=== PATIENT | female | born 1995 | race Caucasian/White ===

== ENCOUNTER 2018-10-06 12:19 | Inpatient (IN) | payer OTHER, BC ==
[2018-10-06] MEDS ORDERED: TERBUTALINE 1 MG/ML VIAL SQ PRN (13:03)
[2018-10-06] MEDS ORDERED: METHYLERGONOVINE 0.2 MG/ML 1 ML AMP IM PRN (13:03)
[2018-10-06] MEDS ORDERED: CARBOPROST TROMETHAMINE 250 MCG/ML 1 ML AMP IM PRN (13:03)
[2018-10-06] MEDS ORDERED: OXYTOCIN 10 UNIT/ML 1 ML VIAL IM PRN (13:03)
[2018-10-06] MEDS ORDERED: LIDOCAINE 0.5% (PF) 5 MG/ML (50 ML SDV) SQ PRN (13:03)
[2018-10-06] MEDS ORDERED: PENICILLIN G POTASSIUM 5,000,000 UNIT in DEXTROSE 5% IN WATER 100 ML IVPB STA ×2 (13:03)
[2018-10-06] MEDS ORDERED: BUTORPHANOL 1 MG/ML 1 ML VIAL IV PRN (13:06)
--- NOTE | 2018-10-06 13:12 | P.HPOB ---
History of Present Illness H&P Date: 10/06/18 Chief Complaint: 35-2/7 weeks, active labor The patient is a 23-year-old 1 para 0 admitted at 35-2/7 weeks as established by good dating parameters. She is admitted from the office having been in the office for routine visit today at which time her cervical check demonstrated her cervix to be 4+ centimeters dilated, 80% effaced, the vertex in presentation at -2-3 station. She was sent to labor and delivery for further monitoring and cervical recheck. Recheck on labor and delivery demonstrated her cervix to be 6+ centimeters dilated 90% effaced with the vertex in presentation at -1 station with bulging bag of water. As result, she is admitted for active labor. Given her advanced dilation, no attempts will be made to stop the labor at this time. She will be managed expectantly. Her has otherwise been uncomplicated to this point and her only problem for the has been morbid obesity. Group B strep status is not yet known as it was only cultured today. Obstetrical history: 1 para 0 with current statistics listed in history present illness. EDC and laboratory workup are as outlined in the record which is being sent from the office currently. Gynecologic history: Unremarkable with no history of any infections to include STDs. Review of Systems Review of systems is confined to history of present illness. Medications and Allergies Home Medications Medication Instructions Recorded Confirmed Type Benzoyl Peroxide [Benzac AC Wash] 1 applic TOPICAL BID 10/06/18 10/06/18 History Omeprazole 40 mg PO DAILY MDD 40 mg 10/06/18 10/06/18 History Pnv,Calcium 72/Iron/Folic Acid 1 tab PO DAILY MDD 1 10/06/18 10/06/18 History [ Plus Tablet] diphenhydrAMINE [Benadryl] 25 mg PO BID PRN 10/06/18 10/06/18 History Allergies Allergy/AdvReac Type Severity Reaction Status Date / Time No Known Allergies Allergy Verified 10/06/18 12:55 Exam Intake and Output 10/05/18 10/06/18 10/06/18 22:59 06:59 14:59 Other: Weight 138.346 kg In general, this is a well-developed, morbidly obese white female in no acute distress. Her heart has a regular rhythm and rate without murmur. Her lungs are clear to auscultation bilaterally in all hou. Her abdomen is obese, nondistended, has normal active bowel sounds, soft, nontender, and without any palpable masses aside from uterine fundus. Her extremities are without any cyanosis, clubbing, or edema and are nontender to palpation bilaterally. Digital cervical examination performed by the nursing staff most recently demonstrates cervix to be 6+ centimeters dilated, 90% effaced, the vertex in presentation at -1 station with a bulging bag of water. Assessment and Plan (1) Active labor Current Visit: Yes Status: Acute Code(s): O60.10X0 - LABOR W DELIVERY, UNSP TRIMESTER, UNSP SNOMED Code(s): 2264134 Plan: The patient will be admitted and managed expectantly at this time. Antibiotic prophylaxis for group B strep will be started. No movement will be made to actively deliver the patient at this time or until adequate antibody prophylaxis has been established. She will continue to have close maternal and surveillance and expectant management will be practiced. She is a good candidate for either IV or epidural analgesia, whichever she may choose. We did have a discussion regarding the issues of prematurity and the likelihood that the infant will need to remain in the hospital for some time following delivery secondary to issues of prematurity.
[2018-10-06] MEDS: LACTATED RINGERS 1,000 ML IV SCH ×3 (13:30→22:38)
[2018-10-06] MEDS ORDERED: BETAMET ACET-BETAMETH SOD PHOS 6 MG/ML VIAL IM SCH (13:30)
[2018-10-06 13:44] LABS: Basophils % (A) 0 %; Eosinophils # (A) 0.1 k/uL (0-0.7); Eosinophils % (A) 1 %; HCT 40.1 % (34.0-46.0); HGB 12.9 gm/dL (11.4-16.0); Lymphocytes # (A) 1.9 k/uL (1.0-4.8); Lymphocytes % (A) 17 %; MCH 27.3 pg (25.0-35.0); MCHC 32.2 g/dL (31.0-37.0); MCV 84.9 fL (80.0-100.0); Mean Platelet Volume 9.2; Monocytes # (A) 0.5 k/uL (0-1.0); Monocytes % (A) 5 %; Neutrophils % (A) 75 %; Platelet Count 167 k/uL (150-450); RBC 4.72 m/uL (3.80-5.40); RDW 13.5 % (11.5-15.5); WBC 10.7 k/uL (3.8-10.6)
[2018-10-06 14:00] VITALS: BMI 54.0
[2018-10-06] MEDS: PENICILLIN G POTASSIUM 2,500,000 UNIT in DEXTROSE 5% IN WATER 100 ML IVPB SCH ×2 (19:05)
[2018-10-06] MEDS ORDERED: ceFAZolin 3 GM in SODIUM CHLORIDE 0.9% 100 ML IVPB ONE (20:47)
[2018-10-06] MEDS ORDERED: CITRIC ACID-SODIUM CITRATE 15 ML CUP PO ONE (20:47)
[2018-10-06] MEDS ORDERED: fentaNYL (PF) 50 MCG/ML 2 ML AMP ONE (20:53)
[2018-10-06] MEDS ORDERED: HYDROmorphone (PF) 1 MG/ML ONE (20:53)
[2018-10-06] MEDS ORDERED: SUCCINYLCHOLINE CHLORIDE 100 MG/5 ML SYR IV ONE (20:53)
[2018-10-06] MEDS ORDERED: OXYTOCIN 10 UNIT/ML 1 ML VIAL ONE (20:53)
[2018-10-06] MEDS ORDERED: PROPOFOL 10 MG/ML 20 ML VIAL IV ONE (20:53)
[2018-10-06] MEDS ORDERED: KETOROLAC 30 MG/ML 1 ML VIAL ONE (20:53)
[2018-10-06] MEDS ORDERED: ONDANSETRON 4 MG/2 ML VIAL ONE (20:53)
[2018-10-06] MEDS ORDERED: METOCLOPRAMIDE 5 MG/ML 2 ML VIAL IVP PRN (21:44)
[2018-10-06] MEDS ORDERED: diphenhydrAMINE 50 MG/ML 1 ML VIAL IVP PRN ×2 (21:44)
[2018-10-06] MEDS ORDERED: ACETAMINOPHEN TAB 325 MG TAB PO PRN (21:44)
[2018-10-06] MEDS ORDERED: SIMETHICONE 80 MG CHEWABLE PO PRN (21:44)
[2018-10-06] MEDS ORDERED: HYDROcodone/APAP 7.5-325MG 1 EACH TAB PO PRN (21:44)
[2018-10-06] MEDS ORDERED: HYDROcodone/APAP 5-325MG 1 EACH TAB PO PRN (21:44)
[2018-10-06] MEDS ORDERED: NALOXONE 0.4 MG/ML 1 ML VIAL IV PRN (21:44)
[2018-10-06] MEDS ORDERED: ACETAMINOPHEN IV (For NPO) 1,000 MG in EMPTY BAG 1 BAG IVPB ONE (21:44)
[2018-10-06] MEDS ORDERED: diphenhydrAMINE 25 MG CAP PO PRN (21:44)
[2018-10-06] MEDS ORDERED: ZOLPIDEM 5 MG TAB PO PRN (21:44)
[2018-10-06] MEDS ORDERED: IBUPROFEN 600 MG TAB PO PRN (21:44)
[2018-10-06] MEDS ORDERED: ONDANSETRON 4 MG/2 ML VIAL IVP PRN (21:44)
[2018-10-06] MEDS ORDERED: LANOLIN CREAM 5 GM TUBE TOPICAL PRN (21:44)
[2018-10-06] MEDS ORDERED: diphenhydrAMINE 50 MG CAP PO PRN (21:44)
[2018-10-06] MEDS ORDERED: OXYTOCIN 20 UNITS/1000 ML NS 1,000 ML IV SCH (21:45)
[2018-10-06] MEDS ORDERED: HYDROmorphone PCA 10 MG/50 ML BAG IV PRN (21:50)
--- NOTE | 2018-10-06 21:59 | P.OP ---
Date of Procedure: 10/06/18 Preoperative Diagnosis: #1. 35-2/7 weeks, active labor #2. Acute umbilical cord prolapse Postoperative Diagnosis: Same Procedure(s) Performed: #1. Emergency primary low-transverse section Anesthesia: LIDIA Surgeon: Tyson Tran Founder Ceo & President #1: Mukund Dumont Estimated Blood Loss (ml): 700 IV fluids (ml): 1,000 Urine output (ml): 200 Pathology: other (Placenta) Condition: stable Disposition: floor Operative Findings: Preoperatively, the patient presented from the office where she had been found to be 47 m dilated and was found in triage to be 6 cm dilated with active contractions. She was given betamethasone and antibiotic prophylaxis started. The intention was to keep her as long as possible. She, however, began to have significantly increased discomfort and progressed to approximately 8 cm of dilation at which time artificial rupture of membranes was carried out. There was a copious amount of amniotic fluid released with rupture of membranes and a scalp lead had been placed. The lesion appeared to be malfunctioning and was rechecked at which time a loop of umbilical cord was noted to have prolapsed below the level of the head. Preparations were made for emergency section. She was taken to the operating room where she underwent emergency section as above and was delivered of a viable 5 lbs. 11 oz. baby boy with Apgars of 7 at 1 minute and 9 at 5 minutes. cord gases are pending at this time. The placenta was delivered manually and intact and was sent for pathological diagnoses with a grossly normal three-vessel cord. The uterus, tubes, and ovaries were entirely normal to inspection. Clear urine was noted throughout and after the case. Description of Procedure: The patient was prepped and draped in usual fashion and general endotracheal anesthesia was placed by the anesthesiologist. A Pfannenstiel incision was made and extended into the abdominal cavity very rapidly and without difficulty. The bladder was noted to be distal from intended site of uterine incision. A 2 cm incision was made in the transverse plane of the lower uterine segment to enter the uterus at which time further clear fluid was noted. The incision was extended bluntly. The head was delivered up and through the wound remainder of the infant delivered onto the field where the cord was doubly clamped and cut while resuscitative measures were being initiated. A segment of cord was doubly clamped, cut, and set aside for cord gases to be taken. The placenta was delivered manually and intact as noted above. Following delivery of the , and Yahir self-retaining wound retractor was placed and the margins of the incision grasped with Bhatti clamps. The uterus was left intra-abdominally as the angle was far superior for closure. The wound was closed with 2 running stitches of 0 Vicryl, the first being a running locking stitch followed by a running imbricating stitch. Hemostasis appeared to be excellent. The uterus was then exteriorized and the posterior cul-de-sac suctioned with a guard. Uterus was replaced in the abdominal cavity after insuring normal uterine and ovarian findings. The gutters were swept of any remaining blood, fluid, or clot. The wound was reexamined and found to be hemostatic. The Azul retractor was removed and the layer of muscles examined and made hemostatic with the Bovie. After ensuring adequate hemostasis, the fascia was closed with 2 running stitches of 0 Vicryl proceeding from the lateral margins to the midpoint. The subcutaneous tissues were irrigated and made hemostatic with the Bovie. They were then reapproximated with a running stitch of 30 plain catgut. Skin was closed with a running subcuticular stitch of 4-0 Vicryl followed by half-inch Steri-Strips placed with Mastisol. Maternal wall thickness was approximately 10 cm. All sponge, instrument, and needle counts were correct. There were no complications aside from the emergent nature of the procedure. The patient tolerated the procedure well and proceeded to the recovery room in stable condition. Estimated blood loss was approximately 700 mL.
[2018-10-07] MEDS: PENICILLIN G POTASSIUM 2,500,000 UNIT in DEXTROSE 5% IN WATER 100 ML IVPB SCH ×2 (02:43)
[2018-10-07] MEDS: KETOROLAC 30 MG/ML 1 ML VIAL IVP PRN ×3 (05:37→17:25)
[2018-10-07] MEDS: LACTATED RINGERS 1,000 ML IV SCH ×2 (05:45→20:53)
[2018-10-07 07:04] LABS: Basophils % (A) 0 %; Eosinophils % (A) 0 %; HCT 38.5 % (34.0-46.0); HGB 12.4 gm/dL (11.4-16.0); Lymphocytes # (A) 1.1 k/uL (1.0-4.8); Lymphocytes % (A) 6 %; MCH 27.4 pg (25.0-35.0); MCHC 32.1 g/dL (31.0-37.0); MCV 85.5 fL (80.0-100.0); Mean Platelet Volume 9.7; Monocytes # (A) 0.7 k/uL (0-1.0); Monocytes % (A) 4 %; Neutrophils # (A) 15.5 k/uL (1.3-7.7); Neutrophils % (A) 89 %; Platelet Count 182 k/uL (150-450); RBC 4.51 m/uL (3.80-5.40); RDW 13.5 % (11.5-15.5); WBC 17.5 k/uL (3.8-10.6)
--- NOTE | 2018-10-07 08:30 | P.PNOBGPC ---
Subjective - Subjective Patient reports: Reports appetite normal, Reports voiding normally, Reports pain well controlled, Reports ambulating normally : doing well, in NICU (Doing very well, weaning from high flow oxygen) Objective - Vital Signs Latest vital signs: Vital Signs Temp Pulse Resp BP Pulse Ox 10/07/18 03:49 97.6 F 87 16 121/67 99 10/07/18 00:00 97.0 F L 65 18 118/60 100 10/06/18 23:39 98.4 F 68 18 118/59 98 10/06/18 23:09 67 18 123/61 100 10/06/18 22:39 60 18 119/60 98 10/06/18 22:24 97.9 F 65 18 123/66 98 10/06/18 22:09 69 18 122/58 100 10/06/18 21:54 89 20 132/69 100 10/06/18 21:50 100 10/06/18 21:39 97.1 F L 93 20 131/68 100 10/06/18 12:52 97.2 F L 85 18 137/65 97 Intake and Output 10/06/18 10/07/18 10/07/18 22:59 06:59 14:59 Intake Total 1000 1100 Output Total 900 1700 Balance 100 -600 Intake: IV 1000 Intake, IV Titration 1100 Amount ACETAMINOPHEN IV (For NPO 100 ) 1,000 mg In Empty Bag 1 bag @ 400 mls/hr IVPB ONCE ONE Rx#:[id number] Lactated Ringers 1,000 ml 1000 @ 125 mls/hr IV .Q8H [facility] Rx#:[id number] Output: Urine 200 1700 Uretheral (Thapa) 1000 Estimated Blood Loss 700 Other: Voiding Method Indwelling Catheter Indwelling Catheter # Voids 2 0 - Exam Extremities: Present: normal Abdomen: Present: normal appearance, soft. Absent: distention, tenderness Incision: Present: normal, dry, intact Uterus: Present: normal, firm (The uterine fundus is tonic and appropriately tender around the umbilicus. Exam is limited by patient habitus.) - Labs Labs: Abnormal Lab Results - Last 24 Hours (Table) 10/06/18 10/07/18 Range/Units 13:25 06:52 WBC 10.7 H 17.5 H (3.8-10.6) k/uL Neutrophils # 8.0 H 15.5 H (1.3-7.7) k/uL Assessment and Plan (1) Active labor Current Visit: Yes Status: Acute Code(s): O60.10X0 - LABOR W DELIVERY, UNSP TRIMESTER, UNSP SNOMED Code(s): 7345031 (2) S/P emergency section Current Visit: Yes Status: Acute Code(s): Z98.891 - HISTORY OF UTERINE SCAR FROM PREVIOUS SURGERY SNOMED Code(s): 304568079 Plan: Continue routine postoperative care. I will advance her diet to regular with lunch. I strongly encouraged her to ambulate in the hallways routinely, but at least 4 times daily. Her [employer] will be discontinued around lunchtime in favor of oral pain medications and her IV will be hep-locked.
[2018-10-07] MEDS: SENNOSIDES-DOCUSATE SODIUM 1 EACH TAB PO SCH (20:53)
[2018-10-08] MEDS: SENNOSIDES-DOCUSATE SODIUM 1 EACH TAB PO SCH (08:14)
--- NOTE | 2018-10-08 10:42 | P.DS ---
Providers Date of admission: 10/06/18 12:51 Expected date of discharge: 10/08/18 Attending physician: Tyson Tran Primary care physician: Stated None - Discharge Diagnosis(es) (1) Active labor Current Visit: Yes Status: Acute (2) S/P emergency section Current Visit: Yes Status: Acute Hospital Course: The patient is a 23-year-old 1 para 0 admitted at 35-2/7 weeks by good dating parameters. She is admitted after having been found in the office to be 4 cm dilated and 70% effaced. She was sent to the hospital for observation and evaluation. When she arrived, she was found to be 6 cm dilated and actively in labor. She was given a dose of betamethasone and antibiotics started for group B strep prophylaxis. The intention was to allow her to remain as long as possible. After several hours, however, she became significantly more uncomfortable and the decision was made to proceed with delivery. She underwent artificial rupture of membranes and a scalp lead was placed. The scalp lead appeared to be malfunctioning was rechecked at which time it was noted that she had a loop of umbilical cord prolapsing through the cervix had of the head. She was taken then to the operating room for an emergency primary low-transverse section where she was delivered of a viable 5 lbs. 11 oz. baby boy with Apgars of 7 at 1 minute and 9 at 5 minutes. The patient's postoperative course was unremarkable with vital signs remaining stable and her temperature was afebrile throughout. She was deemed stable for discharge on and postoperative day #2. She was discharged home to follow-up in the office in 2 weeks for an incision check and 6 weeks routinely. Discharge instructions included calling for any significantly increased bleeding or foul-smelling lochia, significantly increased fever abdominal pain, perineal complaints, breast complaints, incisional complaints, or anything else that concerned her. She is additionally instructed to have nothing in the vagina for at least 6 weeks time to include intercourse and to abstain from any heavy lifting over the same period of time. His last instructed to do no driving until off of all pain medications or 2 weeks' time, whichever came first. She understood all of her instructions and agrees to follow up as noted above. The does remain in special care nursery for ongoing treatment of issues of prematurity but is doing quite well. Maternal blood type is O+ and rubella status is immune. Discharge hemoglobin and hematocrit were 12.4 and 38.5 respectively. Procedures: #1. Antibiotic prophylaxis #2. Betamethasone administration #3. Emergency primary low-transverse section Patient Condition at Discharge: Stable Plan - Discharge Summary New Discharge Prescriptions: No Action Pnv,Calcium 72/Iron/Folic Acid [ Plus Tablet] 1 tab PO DAILY MDD 1 diphenhydrAMINE [Benadryl] 25 mg PO BID PRN PRN Reason: Itching Omeprazole 40 mg PO DAILY MDD 40 mg Discharge Medication List Omeprazole 40 mg PO DAILY MDD 40 mg 10/06/18 [History] Pnv,Calcium 72/Iron/Folic Acid [ Plus Tablet] 1 tab PO DAILY MDD 1 10/06/18 [History] diphenhydrAMINE [Benadryl] 25 mg PO BID PRN 10/06/18 [History] Follow up Appointment(s)/Referral(s): Tyson Tran MD [STAFF PHYSICIAN] - 2 Weeks Discharge Disposition: HOME SELF-CARE
[2018-10-08 13:32] VITALS: BP 118/79; PULSE 82; RESP 16; TEMP 98.2
--- NOTE | 2018-10-09 11:21 | P.MSEPDOC ---
Presenting Problems - Arrival Data Date of Arrival on Unit: 10/06/18 Time of Arrival on Unit: 12:50 Mode of Transport: Bed - Complaint OB-Reason for Admission/Chief Complaint: Possible Onset of Labor Comment: 4-5 cm at office. sent for observation Medical History - Information : 3 Para: 0 Term: 0 : 0 Abortions: Spontaneous or Elective: 0 Number of Living Children: 0 - Gestational Age Gestational Age by MAXI (wks/days): 35 Weeks and 3 Days Review of Systems - Review of Systems Constitutional: No problems Breast: No problems ENT: No problems Cardiovascular: No problems Respiratory: No problems Gastrointestinal: No problems Genitourinary: No problems Musculoskeletal: No problems Neurological: No problems Skin: No problems Vital Signs - Temperature Temperature: 98.2 F Temperature Source: Oral - Pulse Right Brachial Pulse Rate: 82 Pulse Assessment Method: Automatic Cuff - Respirations Respiratory Rate: 16 Oxygen Delivery Method: Room Air - Blood Pressure Right Arm Blood Pressure: 118/79 Blood Pressure Mean: 92 Blood Pressure Source: Automatic Cuff - Comment Vital Signs Comment: denies additional needs at this time. No s/s of distress noted at this time. SO at bedside. Pt resting in bed, sleeping. Encouraged to use DIRECTOR OF [employer]NERSHIPS with pain. Call light within reach. Will continue to monitor. Medical Screen Scoring (Pre) - Cervical Exam Dilation: 4-7 cm = 2 Effacement: Exam Deferred Membranes: Intact - Uterine Contractions Frequency: N/A Duration: N/A Intensity: N/A - Maternal Vital Signs Maternal Temperature: N/A Maternal Blood Pressure: N/A Signs of Preeclampsia: N/A Maternal Respirations: N/A - Maternal Trauma Maternal Trauma: N/A - Assessment - Baby A Baseline FHR: 130 Heart Rate - NICHD Category: Category I (Normal) = 0 NST: Reactive Position: N/A Station: N/A - Total Score - Baby A Total Score - Baby A: 2 - Total Score - Baby B Total Score - Baby B: 2 - Total Score - Baby C Total Score - Baby C: 2 - Level of Risk - Baby A Level of Risk - Baby A: Low (0-5) - Level of Risk - Baby B Level of Risk - Baby B: Low (0-5) - Level of Risk - Baby C Level of Risk - Baby C: Low (0-5) Physician Notification (Pre) - Physician Notified Physician Notified Date: 10/06/18 Physician Notified Time: 12:50 Physician/Practitioner Notifed:: yes Spoke With: panchito New Order Received: Yes - Notification Comment Comment: Orders received Dr. Tran for penicillin and celestone. See orders. Disposition - Disposition OB Disposition: Admit Transferred to:: st 5 Discharge Date: 10/08/18 Discharge Time: 15:25 I agree with the RN Medical Screening Exam: Yes Risk & Benefit of care provided described in d/c instruction: Yes Diagnosis: LABOR THIRD TRI W DELIVERY THIRD TRI, UNSP
== END 2018-10-08 15:25 | disposition home or self-care (01) | DRG 788 ==
LOC: FBPOP 12:19 → 4FBP 12:51
PROVIDERS: ADMIT Obstetrics & Gynecology; ATTEND Obstetrics & Gynecology
PROC: 10907ZC Drainage of Amniotic Fluid, Therapeutic from Products of Conception, Via Natural or Artificial Opening (ICD-10-PCS; 2018-10-06)
PROC: 4A1H7CZ Monitoring of Products of Conception, Cardiac Rate, Via Natural or Artificial Opening (ICD-10-PCS; 2018-10-06)
PROC: 10H073Z Insertion of Monitoring Electrode into Products of Conception, Via Natural or Artificial Opening (ICD-10-PCS; 2018-10-06)
PROC: 10D00Z1 Extraction of Products of Conception, Low, Open Approach (ICD-10-PCS; principal; 2018-10-06 20:50)
DX: O60.14X0 Preterm labor third trimester with preterm delivery third trimester, not applicable or unspecified (principal); O69.0XX0 Labor and delivery complicated by prolapse of cord, not applicable or unspecified; O99.214 Obesity complicating childbirth; E66.01 Morbid (severe) obesity due to excess calories; Z3A.35 35 weeks gestation of pregnancy; Z37.0 Single live birth
CPT/HCPCS: 85025; 86850; 86900; 86901

== ENCOUNTER 2020-09-05 14:09 | Emergency (ER) | payer BC, OTHER ==
[2020-09-05 14:25] VITALS: BP 131/87; PULSE 77; RESP 16; TEMP 98.2
[2020-09-05] MEDS ORDERED: KETOROLAC 15 MG/ML 1 ML VIAL IVP STA (14:55)
[2020-09-05] MEDS ORDERED: SODIUM CHLORIDE 0.9% 1,000 ML IV STA (14:55)
--- NOTE | 2020-09-05 15:03 | ED ---
Abdominal Pain HPI - General Chief Complaint: Abdominal Pain Stated Complaint: Vomiting blood,ABD pain Source: patient, RN notes reviewed, old records reviewed Mode of arrival: ambulatory Limitations: no limitations - History of Present Illness Initial Comments: 24-year-old obese white female, alert and oriented 4, presents to the emergency room with complaints of epigastric and right upper quadrant abdominal pain. Patient states on morning at 4 AM she had an episode of vomiting which was mostly food. Patient states that the pain gets worse after she eats. She has not had this before. Patient states pain is 6 out of 10 and sharp with palpation. She also had another episode of vomiting today with specks of blood in it. Patient states that she also has some diarrhea after she eats but denies any fevers. She denies any medical history but does take omeprazole since being with her son in 2018. Patient surgical history consists of only a in September 2018. Patient states her last menstrual period was August 13. She is a nonsmoker. MD Complaint: abdominal pain -: days(s) (6) Location: RUQ, epigastric Radiation: none Severity scale (1-10): 6 Quality: sharp Consistency: intermittent Worsens With: eating Associated Symptoms: diarrhea - Related Data Patient : No (Negative test at [facility] today; IUD since 2018) Home Medications Medication Instructions Recorded Confirmed Omeprazole 40 mg PO DAILY MDD 40 mg 10/06/18 10/06/18 Pnv,Calcium 72/Iron/Folic Acid 1 tab PO DAILY MDD 1 10/06/18 10/06/18 [ Plus Tablet] diphenhydrAMINE [Benadryl] 25 mg PO BID PRN 10/06/18 10/06/18 Allergies Allergy/AdvReac Type Severity Reaction Status Date / Time benzoyl peroxide Allergy Rash/Hives Verified 09/05/20 14:24 Review of Systems ROS Statement: Those systems with pertinent positive or pertinent negative responses have been documented in the HPI. ROS Other: All systems not noted in ROS Statement are negative. Past Medical History Past Medical History: No Reported History History of Any Multi-Drug Resistant Organisms: None Reported Past Surgical History: Section, Ear Surgery Additional Past Surgical History / Comment(s): myringotomy, wisdom teeth Past Anesthesia/Blood Transfusion Reactions: No Reported Reaction Past Psychological History: No Psychological Hx Reported Smoking Status: Never smoker Past Alcohol Use History: None Reported Past Drug Use History: None Reported - Past Family History Father Additional Family Medical History / Comment(s): crohns, diverticuli Mother Family Medical History: Hypertension General Exam Limitations: no limitations General appearance: alert, in no apparent distress Head exam: Present: atraumatic, normocephalic, normal inspection Eye exam: Present: normal appearance, PERRL, EOMI. Absent: scleral icterus, conjunctival injection, periorbital swelling Pupils: Present: normal accommodation ENT exam: Present: normal exam, mucous membranes moist Neck exam: Present: normal inspection. Absent: tenderness, meningismus, full ROM, lymphadenopathy Respiratory exam: Present: normal lung sounds bilaterally. Absent: respiratory distress, wheezes, rales, rhonchi, stridor, chest wall tenderness, accessory muscle use, decreased breath sounds Cardiovascular Exam: Present: regular rate, normal rhythm, normal heart sounds. Absent: systolic murmur, diastolic murmur, rubs, gallop, clicks GI/Abdominal exam: Present: soft, normal bowel sounds. Absent: distended, tenderness, guarding, rebound, rigid, mass Extremities exam: Present: normal inspection, full ROM, normal capillary refill. Absent: tenderness, pedal edema, joint swelling, calf tenderness Back exam: Present: normal inspection, full ROM. Absent: tenderness, CVA tenderness (R), CVA tenderness (L), muscle spasm, paraspinal tenderness, vertebral tenderness Neurological exam: Present: alert, oriented X3, CN II-XII intact Psychiatric exam: Present: normal affect, normal mood Skin exam: Present: warm, dry, intact, normal color. Absent: rash, cyanosis, diaphoretic, erythema, petechiae, pallor, mottled Course Vital Signs 09/05/20 14:22 Temperature 98.2 F Pulse Rate 77 Respiratory 16 Rate Blood Pressure 131/87 O2 Sat by Pulse 100 Oximetry Medical Decision Making - Medical Decision Making WBC count is 7.1, hemoglobin and hematocrit is 14 and 43 respectively, UCG is negative. Amylase 49, lipase 79. Weight does not show any signs of infection. CT shows a 1.8 cm complex right ovarian cyst. Liver, spleen, pancreas, gallbladder and appendix are within normal limits. Patient is due to start her period within the next 2 weeks this is likely ovarian cyst pain will be directed to follow up with her primary care doctor. Case discussed with Dr. Nava. - Lab Data Result diagrams: 09/05/20 15:23 09/05/20 15:23 Lab Results 09/05/20 09/05/20 09/05/20 Range/Units 15:23 15:23 15:23 WBC 7.1 (3.8-10.6) k/uL RBC 4.93 (3.80-5.40) m/uL Hgb 14.5 (11.4-16.0) gm/dL Hct 43.1 (34.0-46.0) % MCV 87.4 (80.0-100.0) fL MCH 29.4 (25.0-35.0) pg MCHC 33.6 (31.0-37.0) g/dL RDW 12.8 (11.5-15.5) % Plt Count 172 (150-450) k/uL MPV 9.2 Neutrophils % 70 % Lymphocytes % 22 % Monocytes % 5 % Eosinophils % 2 % Basophils % 1 % Neutrophils # 4.9 (1.3-7.7) k/uL Lymphocytes # 1.5 (1.0-4.8) k/uL Monocytes # 0.4 (0-1.0) k/uL Eosinophils # 0.2 (0-0.7) k/uL Basophils # 0.0 (0-0.2) k/uL PT 9.8 (9.0-12.0) sec INR 0.9 (<1.2) APTT 24.1 (22.0-30.0) sec Sodium (137-145) mmol/L Potassium (3.5-5.1) mmol/L Chloride (98-107) mmol/L Carbon Dioxide (22-30) mmol/L Anion Gap mmol/L BUN (7-17) mg/dL Creatinine (0.52-1.04) mg/dL Est GFR (CKD-EPI)AfAm (>60 ml/min/1.73 sqM) Est GFR (CKD-EPI)NonAf (>60 ml/min/1.73 sqM) Glucose (74-99) mg/dL Calcium (8.4-10.2) mg/dL Total Bilirubin (0.2-1.3) mg/dL AST (14-36) U/L ALT (4-34) U/L Alkaline Phosphatase (38-126) U/L Total Protein (6.3-8.2) g/dL Albumin (3.5-5.0) g/dL Amylase (30-110) U/L Lipase (23-300) U/L Urine Color Light Yellow Urine Appearance Clear (Clear) Urine pH 6.5 (5.0-8.0) Ur Specific [place] 1.009 (1.001-1.035) Urine Protein Negative (Negative) Urine Glucose (UA) Negative (Negative) Urine Ketones Negative (Negative) Urine Blood Negative (Negative) Urine Nitrite Negative (Negative) Urine Bilirubin Negative (Negative) Urine Urobilinogen <2.0 (<2.0) mg/dL Ur Leukocyte Esterase Negative (Negative) Urine HCG, Qual (Not Detectd) 09/05/20 09/05/20 Range/Units 15:23 15:23 WBC (3.8-10.6) k/uL RBC (3.80-5.40) m/uL Hgb (11.4-16.0) gm/dL Hct (34.0-46.0) % MCV (80.0-100.0) fL MCH (25.0-35.0) pg MCHC (31.0-37.0) g/dL RDW (11.5-15.5) % Plt Count (150-450) k/uL MPV Neutrophils % % Lymphocytes % % Monocytes % % Eosinophils % % Basophils % % Neutrophils # (1.3-7.7) k/uL Lymphocytes # (1.0-4.8) k/uL Monocytes # (0-1.0) k/uL Eosinophils # (0-0.7) k/uL Basophils # (0-0.2) k/uL PT (9.0-12.0) sec INR (<1.2) APTT (22.0-30.0) sec Sodium 138 (137-145) mmol/L Potassium 4.4 (3.5-5.1) mmol/L Chloride 105 (98-107) mmol/L Carbon Dioxide 25 (22-30) mmol/L Anion Gap 8 mmol/L BUN 13 (7-17) mg/dL Creatinine 0.71 (0.52-1.04) mg/dL Est GFR (CKD-EPI)AfAm >90 (>60 ml/min/1.73 sqM) Est GFR (CKD-EPI)NonAf >90 (>60 ml/min/1.73 sqM) Glucose 101 H (74-99) mg/dL Calcium 9.6 (8.4-10.2) mg/dL Total Bilirubin 0.3 (0.2-1.3) mg/dL AST 22 (14-36) U/L ALT 20 (4-34) U/L Alkaline Phosphatase 87 (38-126) U/L Total Protein 6.8 (6.3-8.2) g/dL Albumin 4.1 (3.5-5.0) g/dL Amylase 49 (30-110) U/L Lipase 79 (23-300) U/L Urine Color Urine Appearance (Clear) Urine pH (5.0-8.0) Ur Specific [place] (1.001-1.035) Urine Protein (Negative) Urine Glucose (UA) (Negative) Urine Ketones (Negative) Urine Blood (Negative) Urine Nitrite (Negative) Urine Bilirubin (Negative) Urine Urobilinogen (<2.0) mg/dL Ur Leukocyte Esterase (Negative) Urine HCG, Qual Not Detected (Not Detectd) Disposition Clinical Impression: Ovarian cyst Disposition: HOME SELF-CARE Condition: Good Instructions (If sedation given, give patient instructions): Ovarian Cyst (ED) Additional Instructions: Return to the emergency room with increasing pain, or fevers. Follow-up with your primary care doctor in 1 week as needed. Use a warm compress and Motrin for pain. Is patient prescribed a controlled substance at d/c from ED?: No Referrals: None,Stated [Primary Care Provider] - 1-2 days Time of Disposition: 17:30
[2020-09-05 15:36] LABS: Basophils % (A) 1 %; Eosinophils # (A) 0.2 k/uL (0-0.7); Eosinophils % (A) 2 %; HCT 43.1 % (34.0-46.0); HGB 14.5 gm/dL (11.4-16.0); Lymphocytes # (A) 1.5 k/uL (1.0-4.8); Lymphocytes % (A) 22 %; MCH 29.4 pg (25.0-35.0); MCHC 33.6 g/dL (31.0-37.0); MCV 87.4 fL (80.0-100.0); Mean Platelet Volume 9.2; Monocytes # (A) 0.4 k/uL (0-1.0); Monocytes % (A) 5 %; Neutrophils # (A) 4.9 k/uL (1.3-7.7); Neutrophils % (A) 70 %; Platelet Count 172 k/uL (150-450); RBC 4.93 m/uL (3.80-5.40); RDW 12.8 % (11.5-15.5); WBC 7.1 k/uL (3.8-10.6)
[2020-09-05 15:44] LABS: INR 0.9 (<1.2); Partial Thromboplastin Time 24.1 sec (22.0-30.0); Prothrombin Time 9.8 sec (9.0-12.0)
[2020-09-05 16:16] LABS: ALT 20 U/L (4-34); AST 22 U/L (14-36); African American GFR (CKD) >90 (>60 ml/min/1.73 sqM); Albumin 4.1 g/dL (3.5-5.0); Alkaline Phosphatase 87 U/L (38-126); Amylase 49 U/L (30-110); Anion Gap 8 mmol/L; Blood Urea Nitrogen 13 mg/dL (7-17); Calcium 9.6 mg/dL (8.4-10.2); Carbon Dioxide 25 mmol/L (22-30); Chloride 105 mmol/L (98-107); Glucose 101 mg/dL (74-99); Lipase 79 U/L (23-300); Non-African American GFR(CKD) >90 (>60 ml/min/1.73 sqM); Potassium 4.4 mmol/L (3.5-5.1); Sodium 138 mmol/L (137-145); Total Bilirubin 0.3 mg/dL (0.2-1.3); Total Protein 6.8 g/dL (6.3-8.2)
--- NOTE | 2020-09-05 16:21 | CT ---
EXAMINATION TYPE: CT abdomen pelvis wo con DATE OF EXAM: 09/05/2020 COMPARISON: None INDICATION: Right upper quadrant abdominal pain, nausea, vomiting and diarrhea x1 week. DLP: 1676.4 mGycm, Automated exposure control for dose reduction was used. CONTRAST: None Study performed without Oral Contrast TECHNIQUE: Axial images were obtained from above the diaphragm to the pubic rami in the axial plane a t 5 mm thick sections. Reconstructed images are reviewed on the computer in the coronal plane. FINDINGS: Limited CT sections are obtained the lung bases. The lung bases are clear. CT ABDOMEN: Liver: Normal Spleen: Normal Pancreas: Normal Adrenal glands: The adrenal glands are normal. Gallbladder: Normal Kidneys: No masses are evident. No hydronephrosis is present. No cysts are present. Delayed images were obtained through the kidneys, which remain unremarkable. Aorta: Vascular calcification is within the aorta. Inferior vena cava: Normal. CT PELVIS: Loops of bowel within the abdomen and pelvis are normal. This study is performed without oral con trast limiting bowel evaluation. Appendix: Normal as visualized. Urinary bladder: Normal. Genitourinary structures: Uterus contains an IUD. Within the right ovary is a 1.8 cm only slightly hy poechoic area. This could be a complex cyst such as hemorrhagic cyst. Consider ultrasound for additio nal evaluation. No adjacent inflammatory changes are evident. Left adnexal region appears unremarkabl e. Osseous structures: No suspicious lytic or sclerotic lesions. IMPRESSIONS: 1. The appendix is normal, air-filled in the midline. 2. 1.8 cm complex cyst. This could be hemorrhagic cyst. Consider follow-up with ultrasound.
[2020-09-05 17:20] LABS: Appearance,Urine Clear (Clear); Bilirubin,Urine Negative (Negative); Blood,Urine Negative (Negative); Color,Urine Light Yellow; Glucose,Urine (UA) Negative (Negative); Ketones,Urine Negative (Negative); Leukocyte Esterase,Urine Negative (Negative); Nitrite,Urine Negative (Negative); PH, Urine 6.5 (5.0-8.0); Protein,Urine Negative (Negative); Specific Gravity,Urine 1.009 (1.001-1.035); Urobilinogen,Urine <2.0 mg/dL (<2.0)
== END 2020-09-05 17:54 | disposition home or self-care (01) ==
LOC: EC 14:09
DX: N83.201 Unspecified ovarian cyst, right side (principal); E66.9 Obesity, unspecified; R19.7 Diarrhea, unspecified; Z68.42 Body mass index [BMI] 45.0-49.9, adult
CPT/HCPCS: 36415; 80053; 82150; 83690; 85025; 85610; 85730; 81003; 81025; 74176; 99284; 96374; J1885

== ENCOUNTER 2023-12-16 20:36 | Emergency (ER) | payer BC, OTHER ==
[2023-12-16 20:49] VITALS: RESP 18
--- NOTE | 2023-12-16 21:28 | ED ---
Female Urogenital HPI - General Chief complaint: Vaginal Bleeding Stated complaint: 16 wks preg - Bleeding Time Seen by Provider: 12/16/23 20:50 Source: patient, RN notes reviewed Mode of arrival: ambulatory Limitations: no limitations - History of Present Illness Initial comments: this is a [id number] female at approximately 16 weeks reports emergency department for chief complaint of vaginal bleeding. States that this evening around 1999 she noticed that she was experiencing vaginal bleeding with passage of clots noted to size of approximately a golf ball. She denies nausea, vomiting, fevers, chills, lower abdominal cramping. Patient has had 2 previous ultrasounds during this which is confirming intrauterine . She denies urinary symptoms. - Related Data Home Medications Medication Instructions Recorded Confirmed Omeprazole 40 mg PO DAILY MDD 40 mg 10/06/18 10/06/18 Vit No.180/Iron/Folic 1 tab PO DAILY MDD 1 10/06/18 10/06/18 [ Plus Tablet] diphenhydrAMINE [Benadryl] 25 mg PO BID PRN 10/06/18 10/06/18 Allergies Allergy/AdvReac Type Severity Reaction Status Date / Time benzoyl peroxide Allergy Rash/Hives Verified 12/16/23 20:49 Review of Systems ROS Statement: Those systems with pertinent positive or pertinent negative responses have been documented in the HPI. ROS Other: All systems not noted in ROS Statement are negative. Past Medical History Past Medical History: No Reported History History of Any Multi-Drug Resistant Organisms: None Reported Past Surgical History: Section, Ear Surgery Additional Past Surgical History / Comment(s): myringotomy, wisdom teeth Past Anesthesia/Blood Transfusion Reactions: No Reported Reaction Past Psychological History: No Psychological Hx Reported Smoking Status: Never smoker Past Alcohol Use History: None Reported Past Drug Use History: None Reported - Past Family History Father Additional Family Medical History / Comment(s): crohns, diverticuli Mother Family Medical History: Hypertension General Exam Limitations: no limitations General appearance: alert, in no apparent distress ENT exam: Present: normal exam, mucous membranes moist Neck exam: Present: normal inspection. Absent: tenderness, meningismus, lymphadenopathy Respiratory exam: Present: normal lung sounds bilaterally. Absent: respiratory distress, wheezes, rales, rhonchi, stridor Cardiovascular Exam: Present: regular rate, normal rhythm, normal heart sounds. Absent: systolic murmur, diastolic murmur, rubs, gallop, clicks GI/Abdominal exam: Present: soft, normal bowel sounds. Absent: distended, tenderness, guarding, rebound, rigid Extremities exam: Present: normal inspection, full ROM, normal capillary refill. Absent: tenderness, pedal edema, joint swelling, calf tenderness Back exam: Present: normal inspection Course Vital Signs 12/16/23 12/16/23 20:45 23:29 Temperature 98.3 F 98.6 F Pulse Rate 92 68 Respiratory 18 18 Rate Blood Pressure 144/93 134/83 O2 Sat by Pulse 99 98 Oximetry Medical Decision Making - Medical Decision Making Was pt. sent in by a medical professional or institution (, PA, FORM PRESS OPERATOR, urgent care, hospital, or jail...) When possible be specific @ -No Did you speak to anyone other than the patient for history (EMS, parent, family, police, friend...)? What history was obtained from this source @ -No Did you review nursing and triage notes (agree or disagree)? Why? @ -I reviewed and agree with nursing and triage notes Were old charts reviewed (outside hosp., previous admission, EMS record, old EKG, old radiological studies, urgent care reports/EKG's, jail records)? Report findings @ -No old charts were reviewed Differential Diagnosis (chest pain, altered mental status, abdominal pain women, abdominal pain men, vaginal bleeding, weakness, fever, dyspnea, syncope, headache, dizziness, GI bleed, back pain, seizure, CVA, palpatations, mental health, musculoskeletal)? @ -Differential Vaginal Bleeding: Spontaneous , threatened , molar , ectopic , bloody show, incompetent cervix, abruptioplacenta, placenta previa, uterine rupture, dysfunctional uterine bleeding, hemorrhage, uterine fibroids, this is not meant to be an all-inclusive list. EKG interpreted by me (3pts min.). @ -none X-rays interpreted by me (1pt min.). @ -None done CT interpreted by me (1pt min.). @ -None done U/S interpreted by me (1pt. min.). @ - ultrasound reveals a single live intrauterine gestation with no placenta previa and estimated amniotic fluid index is low. advise Short-term follow-up. What testing was considered but not performed or refused? (CT, X-rays, U/S, labs)? Why? @ -None What meds were considered but not given or refused? Why? @ -None Did you discuss the management of the patient with other professionals (professionals i.e. , PA, FORM PRESS OPERATOR, lab, RT, psych nurse, social services counselor, corrections counselor, teacher, coastal/harbor defense officer, caser in)? Give summary @ -No Was smoking cessation discussed for >3mins.? @ -No Was critical care preformed (if so, how long)? @ -No Were there social determinants of health that impacted care today? How? (Homelessness, low income, unemployed, alcoholism, drug addiction, transpo rtation, low edu. Level, literacy, decrease access to med. care, usp, rehab)? @ -No Was there de-escalation of care discussed even if they declined (Discuss DNR or withdrawal of care, Hospice)? DNR status @ -No What co-morbidities impacted this encounter? (DM, HTN, Smoking, COPD, CAD, Cancer, CVA, ARF, Chemo, Hep., AIDS, mental health diagnosis, sleep apnea, morbid obesity)? @ -None Was patient admitted / discharged? Hospital course, mention meds given and route, prescriptions, significant lab abnormalities, going to OR and other pertinent info. @ -Discharged. 28-year-old female with vaginal bleeding during . Patient's vitals are stable. Abdominal examination benign with no signs of tenderness. Patient's urinalysis unremarkable, laboratory studies within normal limits, ultrasound reveals a single live intrauterine gestation with a heart rate of 124 with an estimated low amniotic fluid index. Recommend that patient follow-up in the short-term and she states that she has an appointment scheduled on the with her OB. Patient's blood type is O+. discussed with Dr. John borja Undiagnosed new problem with uncertain prognosis? @ -No Drug Therapy requiring intensive monitoring for toxicity (Heparin, Nitro, Insulin, Cardizem)? @ -No Were any procedures done? @ -No Diagnosis/symptom? @ -vaginal bleeding during , threatened Acute, or Chronic, or Acute on Chronic? @ -Acute Uncomplicated (without systemic symptoms) or Complicated (systemic symptoms)? @ -uncomplicated Side effects of treatment? @ -No Exacerbation, Progression, or Severe Exacerbation? @ -No Poses a threat to life or bodily function? How? (Chest pain, USA, NC, pneumonia, PE, COPD, DKA, ARF, appy, cholecystitis, CVA, Diverticulitis, Homicidal, Suicidal, threat to staff... and all critical care pts) @ -No - Lab Data Result diagrams: 12/16/23 21:20 12/16/23 21:20 Lab Results 12/16/23 12/16/23 12/16/23 Range/Units 21:20 21:20 21:20 WBC 7.8 (3.8-10.6) k/uL RBC 4.70 (3.80-5.40) m/uL Hgb 13.5 (11.4-16.0) gm/dL Hct 41.1 (34.0-46.0) % MCV 87.5 (80.0-100.0) fL MCH 28.7 (25.0-35.0) pg MCHC 32.8 (31.0-37.0) g/dL RDW 13.8 (11.5-15.5) % Plt Count 161 (150-450) k/uL MPV 9.3 Neutrophils % 77 % Lymphocytes % 16 % Monocytes % 4 % Eosinophils % 1 % Basophils % 1 % Neutrophils # 6.0 (1.3-7.7) k/uL Lymphocytes # 1.2 (1.0-4.8) k/uL Monocytes # 0.3 (0-1.0) k/uL Eosinophils # 0.1 (0-0.7) k/uL Basophils # 0.0 (0-0.2) k/uL Sodium 135 L (137-145) mmol/L Potassium 4.6 (3.5-5.1) mmol/L Chloride 109 H (98-107) mmol/L Carbon Dioxide 22 (22-30) mmol/L Anion Gap 4 mmol/L BUN 9 (7-17) mg/dL Creatinine 0.54 (0.52-1.04) mg/dL Est GFR (CKD-EPI)AfAm >90 (>60 ml/min/1.73 sqM) Est GFR (CKD-EPI)NonAf >90 (>60 ml/min/1.73 sqM) Glucose 105 H (74-99) mg/dL Calcium 9.5 (8.4-10.2) mg/dL Total Bilirubin 0.6 (0.2-1.3) mg/dL AST 21 (14-36) U/L ALT 17 (4-34) U/L Alkaline Phosphatase 59 (38-126) U/L Total Protein 6.6 (6.3-8.2) g/dL Albumin 3.8 (3.5-5.0) g/dL HCG, Quant 25995.1 mIU/mL Urine Color Urine Appearance (Clear) Urine pH (5.0-8.0) Ur Specific [place] (1.001-1.035) Urine Protein (Negative) Urine Glucose (UA) (Negative) Urine Ketones (Negative) Urine Blood (Negative) Urine Nitrite (Negative) Urine Bilirubin (Negative) Urine Urobilinogen (<2.0) mg/dL Ur Leukocyte Esterase (Negative) Urine RBC (0-5) /hpf Urine WBC (0-5) /hpf Ur Squamous Epith Cells (0-4) /hpf Urine Bacteria (None) /hpf Urine Mucus (None) /hpf Blood Type O Positive Blood Type Recheck O Pos Bld Type Recheck Status No 12/16/23 Range/Units 21:27 WBC (3.8-10.6) k/uL RBC (3.80-5.40) m/uL Hgb (11.4-16.0) gm/dL Hct (34.0-46.0) % MCV (80.0-100.0) fL MCH (25.0-35.0) pg MCHC (31.0-37.0) g/dL RDW (11.5-15.5) % Plt Count (150-450) k/uL MPV Neutrophils % % Lymphocytes % % Monocytes % % Eosinophils % % Basophils % % Neutrophils # (1.3-7.7) k/uL Lymphocytes # (1.0-4.8) k/uL Monocytes # (0-1.0) k/uL Eosinophils # (0-0.7) k/uL Basophils # (0-0.2) k/uL Sodium (137-145) mmol/L Potassium (3.5-5.1) mmol/L Chloride (98-107) mmol/L Carbon Dioxide (22-30) mmol/L Anion Gap mmol/L BUN (7-17) mg/dL Creatinine (0.52-1.04) mg/dL Est GFR (CKD-EPI)AfAm (>60 ml/min/1.73 sqM) Est GFR (CKD-EPI)NonAf (>60 ml/min/1.73 sqM) Glucose (74-99) mg/dL Calcium (8.4-10.2) mg/dL Total Bilirubin (0.2-1.3) mg/dL AST (14-36) U/L ALT (4-34) U/L Alkaline Phosphatase (38-126) U/L Total Protein (6.3-8.2) g/dL Albumin (3.5-5.0) g/dL HCG, Quant mIU/mL Urine Color Colorless Urine Appearance Clear (Clear) Urine pH 6.5 (5.0-8.0) Ur Specific [place] 1.007 (1.001-1.035) Urine Protein Negative (Negative) Urine Glucose (UA) Negative (Negative) Urine Ketones Negative (Negative) Urine Blood Large H (Negative) Urine Nitrite Negative (Negative) Urine Bilirubin Negative (Negative) Urine Urobilinogen <2.0 (<2.0) mg/dL Ur Leukocyte Esterase Negative (Negative) Urine RBC 1 (0-5) /hpf Urine WBC <1 (0-5) /hpf Ur Squamous Epith Cells 1 (0-4) /hpf Urine Bacteria Rare H (None) /hpf Urine Mucus Rare H (None) /hpf Blood Type Blood Type Recheck Bld Type Recheck Status Disposition Clinical Impression: Vaginal bleeding during Disposition: HOME SELF-CARE Condition: Good Instructions (If sedation given, give patient instructions): Threatened Miscarriage (ED) Additional Instructions: Return to the emergency department for any new or worsening symptoms. Recommend he continue to follow-up with your OB outpatient as scheduled for further evaluation. Is patient prescribed a controlled substance at d/c from ED?: No Referrals: None,Stated [Primary Care Provider] - 1-2 days Time of Disposition: 23:10
[2023-12-16 21:39] LABS: Basophils % (A) 1 %; Eosinophils # (A) 0.1 k/uL (0-0.7); Eosinophils % (A) 1 %; HCT 41.1 % (34.0-46.0); HGB 13.5 gm/dL (11.4-16.0); Lymphocytes # (A) 1.2 k/uL (1.0-4.8); Lymphocytes % (A) 16 %; MCH 28.7 pg (25.0-35.0); MCHC 32.8 g/dL (31.0-37.0); MCV 87.5 fL (80.0-100.0); Mean Platelet Volume 9.3; Monocytes # (A) 0.3 k/uL (0-1.0); Monocytes % (A) 4 %; Neutrophils % (A) 77 %; Platelet Count 161 k/uL (150-450); RDW 13.8 % (11.5-15.5); WBC 7.8 k/uL (3.8-10.6)
[2023-12-16 21:54] LABS: ALT 17 U/L (4-34); AST 21 U/L (14-36); African American GFR (CKD) >90 (>60 ml/min/1.73 sqM); Albumin 3.8 g/dL (3.5-5.0); Alkaline Phosphatase 59 U/L (38-126); Anion Gap 4 mmol/L; Blood Urea Nitrogen 9 mg/dL (7-17); Calcium 9.5 mg/dL (8.4-10.2); Carbon Dioxide 22 mmol/L (22-30); Chloride 109 mmol/L (98-107); Glucose 105 mg/dL (74-99); Non-African American GFR(CKD) >90 (>60 ml/min/1.73 sqM); Potassium 4.6 mmol/L (3.5-5.1); Sodium 135 mmol/L (137-145); Total Bilirubin 0.6 mg/dL (0.2-1.3); Total Protein 6.6 g/dL (6.3-8.2)
--- NOTE | 2023-12-16 22:24 | US ---
EXAMINATION TYPE: US OB >= 14 wk fetus DATE OF EXAM: 12/16/2023 COMPARISON: None CLINICAL INDICATION: Female, 28 years old with history of passing clots, pain, 16 weeks; Patient stat es golf ball size clots. TECHNIQUE: Transabdominal (TA) Limited due to body habitus and low fluid FINDINGS: GESTATIONAL AGE / DATING Physician Established: (16 weeks/0 days) EDC: 06/01/2024 Dates by LMP: (16 weeks/0 days) EDC: 06/01/2024 Dates by First Scan: No previous this is first scan Dates by Current Scan: (16 weeks/5 days) EDC: 05/27/2024 Beta HCG (if available): Not available at this time SURVEY IUP: Single PLACENTA: fundal PREVIA: No Previa MOHAN: 5.9 cm Oligohydramnios BIOMETRY PRESENTATION: Cephalic? LIE: Variable BPD: 3.6 cm 17 weeks / 1 days HC: 12.8 cm 16 weeks / 4 days AC: 10.4 cm 16 weeks / 3 days FL: 2.2 cm 16 weeks / 5 days ESTIMATED WEIGHT IN GRAMS: 158 grams ESTIMATED WEIGHT IN LBS/OZ: 0 lbs. 6 oz. WEIGHT PERCENTAGE BASED ON ESTABLISHED DATES: 74% HC/AC: 1.24 Normal FL/AC: 21% Normal HEART RATE: 121 bpm RHYTHM: Normal MATERNAL WALL MEASUREMENT: 8.3 cm from skin to anterior uterine wall (if exam limited due to body hab itus). Single live intrauterine gestation. No previa. Estimated amniotic fluid index is low. IMPRESSION: As above. Short-term follow-up is advised. [facility], , 12/16/2023 10:21 PM
[2023-12-16 23:01] LABS: HCG,Quantitative Serum 14122.1 mIU/mL
[2023-12-16 23:04] LABS: Appearance,Urine Clear (Clear); Bacteria,Urine Rare /hpf; Bilirubin,Urine Negative (Negative); Blood,Urine Large (Negative); Color,Urine Colorless; Glucose,Urine (UA) Negative (Negative); Ketones,Urine Negative (Negative); Leukocyte Esterase,Urine Negative (Negative); Mucus,Urine Rare /hpf; Nitrite,Urine Negative (Negative); PH, Urine 6.5 (5.0-8.0); Protein,Urine Negative (Negative); RBC,Urine 1 /hpf (0-5); Specific Gravity,Urine 1.007 (1.001-1.035); Squamous Epithelial Cell,Urine 1 /hpf (0-4); Urobilinogen,Urine <2.0 mg/dL (<2.0); WBC,Urine <1 /hpf (0-5)
[2023-12-16 23:31] VITALS: BP 134/83; PULSE 68; TEMP 98.6
== END 2023-12-16 23:31 | disposition home or self-care (01) ==
LOC: EC 20:36
CPT/HCPCS: 36415; 76805; 80053; 81001; 84702; 85025; 86900; 86901; 99284

== ENCOUNTER 2024-05-08 15:18 | Outpatient (CLI) | payer BC ==
[2024-05-08 17:33] VITALS: BP 176/81; PULSE 77; RESP 18; TEMP 98.2
--- NOTE | 2024-06-03 11:13 | P.MSEPDOC ---
Presenting Problems - Arrival Data Date of Arrival on Unit: 05/08/24 Time of Arrival on Unit: 15:18 Mode of Transport: Ambulatory - Complaint OB-Reason for Admission/Chief Complaint: Decreased Movement Medical History - Information : 2 Para: 1 Term: 0 : 1 Abortions: Spontaneous or Elective: 0 Number of Living Children: 1 - Gestational Age Gestational Age by MAXI (wks/days): 36 Weeks and 4 Days Review of Systems - Review of Systems Constitutional: No problems Breast: No problems ENT: No problems Cardiovascular: No problems Respiratory: No problems Gastrointestinal: No problems Genitourinary: No problems Musculoskeletal: No problems Neurological: No problems Skin: No problems Vital Signs - Temperature Temperature: 98.2 F Temperature Source: Temporal Artery Scan - Pulse Right Apical Pulse Rate: 77 Pulse Assessment Method: Automatic Cuff - Respirations Respiratory Rate: 18 Oxygen Delivery Method: Room Air O2 Sat by Pulse Oximetry: 95 - Blood Pressure Right Arm Blood Pressure: 176/81 Blood Pressure Mean: 112 Blood Pressure Source: Automatic Cuff Medical Screen Scoring - Assessment - Baby A Baseline FHR: 150 Heart Rate - NICHD Category: Category I (Normal) NST: Reactive Physician Notification - Physician Notified Physician Notified Date: 05/08/24 Physician Notified Time: 17:02 Physician: Tyson Tran New Order Received: Yes - Notification Comment Comment: Dr. Tran in dept. BP results readback. Orders recieved to d/c pt to home. Dr. warren pt has apt on 05/12/24. Maternal Triage Index - Urgent/Priority 2 Urgent Priority 2: Yes Provider Notified: Tyson Tran Provider Notified Time: 16:12 Criteria Met for Priority 2: Pt c/o of decreased FM. Disposition - Disposition OB Disposition: Discharge to home Discharge Date: 05/08/24 Discharge Time: 17:13 I agree with the RN Medical Screening Exam: Yes Physician's MSE Comment: I have neither seen nor examined the patient. Case reviewed; plan agreed upon as documented in EMR&OBIX.: Yes Diagnosis: RELATED CONDITIONS, UNSPECIFIED, THIRD TRIMESTER
== END 2024-05-08 17:13 | disposition home or self-care (01) ==
LOC: FBPOP 15:18
PROVIDERS: ATTEND Obstetrics & Gynecology
DX: O26.93 Pregnancy related conditions, unspecified, third trimester (principal); Z3A.36 36 weeks gestation of pregnancy; Z88.8 Allergy status to other drugs, medicaments and biological substances
CPT/HCPCS: 59025; 99213

== ENCOUNTER 2024-05-11 08:47 | Inpatient (IN) | payer BC ==
[2024-05-11 10:08] LABS: Basophils % (A) 0 %; Eosinophils # (A) 0.1 k/uL (0-0.7); Eosinophils % (A) 1 %; HCT 37.2 % (34.0-46.0); HGB 12.1 gm/dL (11.4-16.0); Lymphocytes # (A) 1.4 k/uL (1.0-4.8); Lymphocytes % (A) 17 %; MCH 27.5 pg (25.0-35.0); MCHC 32.4 g/dL (31.0-37.0); MCV 84.7 fL (80.0-100.0); Mean Platelet Volume 10.6; Monocytes # (A) 0.4 k/uL (0-1.0); Monocytes % (A) 5 %; Neutrophils # (A) 6.2 k/uL (1.3-7.7); Neutrophils % (A) 74 %; Platelet Count 161 k/uL (150-450); RBC 4.39 m/uL (3.80-5.40); RDW 13.7 % (11.5-15.5); WBC 8.4 k/uL (3.8-10.6)
[2024-05-11 10:10] LABS: ALT 18 U/L (4-34); AST 21 U/L (14-36); African American GFR (CKD) >90 (>60 ml/min/1.73 sqM); Blood Urea Nitrogen 12 mg/dL (7-17); LDH 239 U/L (120-246); Non-African American GFR(CKD) >90 (>60 ml/min/1.73 sqM); Uric Acid 4.6 mg/dL (3.7-7.4)
[2024-05-11] MEDS ORDERED: METHYLERGONOVINE 0.2 MG/ML 1 ML AMP IM PRN (10:39)
[2024-05-11] MEDS ORDERED: TRANEXAMIC 1,000 MG/100ML-NACL 1,000 MG in EMPTY BAG 1 BAG IV PRN (10:39)
[2024-05-11] MEDS ORDERED: CARBOPROST TROMETHAMINE 250 MCG/ML 1 ML AMP IM PRN (10:39)
[2024-05-11] MEDS ORDERED: OXYTOCIN 10 UNIT/ML 1 ML VIAL IM PRN (10:39)
[2024-05-11] MEDS ORDERED: miSOPROStoL 200 MCG TAB PO PRN (10:39)
--- NOTE | 2024-05-11 10:42 | P.HPOB ---
History of Present Illness H&P Date: 05/11/24 Chief Complaint: 37-0/7 weeks, previous section, labor, PIH Patient is a 28-year-old 3 para 0-1-1-1 admitted at 37-0/7 weeks as established by a 9-week ultrasound. She is admitted with significantly elevated blood pressures but a negative laboratory workup for preeclampsia. She has a history of a previous section done emergently for cord prolapse at 35 weeks and has requested repeat section. She is also found to be actively jewel and has made cervical change since her last presentation several days ago, currently 5 cm of dilation and somewhat uncomfortable. She has additionally requested intraoperative bilateral salpingectomy for tubal sterilization. On labor delivery, all signs are reassuring with a category 1 heart rate tracing. Her has otherwise been essentially uncomplicated. Group B strep status is positive. Obstetrical history: 3 para 0-1-1-1 with a 35-week emergency delivery prolapse. Current statistics are listed in history of present illness. EDC of 06/01/2024 was established by 9-week ultrasound. Laboratory workup demonstrates a blood type of O+ with a negative antibody screen. Rubella status is immune. The remainder of the laboratory workup was within normal limits. Early Glucola and second trimester Glucola were both within normal limits. Group B strep status is positive. Gynecologic history: Unremarkable with no history of any infections to include STDs. Review of Systems Review of systems is confined to history of present illness. Past Medical History Past Medical History: No Reported History History of Any Multi-Drug Resistant Organisms: None Reported Past Surgical History: Section, Ear Surgery Additional Past Surgical History / Comment(s): myringotomy, wisdom teeth Past Anesthesia/Blood Transfusion Reactions: No Reported Reaction Past Psychological History: Anxiety, Depression Additional Psychological History / Comment(s): no meds Smoking Status: Former smoker Past Alcohol Use History: None Reported Past Drug Use History: None Reported - Past Family History Father Additional Family Medical History / Comment(s): crohns, diverticuli Mother Family Medical History: Hypertension Medications and Allergies Home Medications Medication Instructions Recorded Confirmed Type Vit No.180/Iron/Folic 1 tab PO DAILY MDD 1 10/06/18 05/11/24 History [ Plus Tablet] Aspirin [[place] Aspirin EC] 81 mg PO DAILY 05/11/24 05/11/24 History Allergies Allergy/AdvReac Type Severity Reaction Status Date / Time benzoyl peroxide Allergy Rash/Hives Verified 05/11/24 09:25 Exam Intake and Output 05/10/24 05/11/24 05/11/24 22:59 06:59 14:59 Other: Weight 154.221 kg General, this is a morbidly obese white female in no acute distress though she is somewhat uncomfortable secondary to contractions. Her heart has a regular rhythm and rate without murmur. Her lungs are clear to auscultation bilaterally in all hou. Her abdomen is obese, nondistended, gravid, has normal active b owel sounds, soft, nontender, and without any palpable masses aside from the uterine fundus. Her extremities are without any cyanosis, clubbing, or significant edema and are nontender to palpation bilaterally. Digital cervical examination by the nursing staff has demonstrated her cervix to be 5 cm dilated, 50% effaced, the vertex and presentation at -2-3 station. There is a bulging bag of water. Results Result Diagrams: 05/11/24 09:40 05/11/24 09:40 Assessment and Plan (1) Active labor Current Visit: Yes Status: Acute Code(s): PIZ1771 - SNOMED Code(s): 757982933 (2) Family planning Current Visit: Yes Status: Acute Code(s): Z30.09 - ENCOUNTER FOR OTH GENERAL CNSL AND ADVICE ON CONTRACEPTION SNOMED Code(s): 338971230 (3) induced hypertension Current Visit: Yes Status: Acute Code(s): O13.9 - GESTATIONAL HTN W/O SIGNIFICANT PROTEINURIA, UNSP TRIMESTER SNOMED Code(s): 84659217 (4) Previous section Current Visit: Yes Status: Acute Code(s): Z98.891 - HISTORY OF UTERINE SCAR FROM PREVIOUS SURGERY SNOMED Code(s): 317209601 (5) Term Current Visit: Yes Status: Acute Code(s): Z34.90 - ENCNTR FOR SUPRVSN OF NORMAL , UNSP, UNSP TRIMESTER SNOMED Code(s): 68153089 Plan: Laboratory workup for preeclampsia appears to be negative at this point. Given the fact that she does have elevated blood pressures and appears to be in active labor with a history of previous section, she will be taken to the operating room for repeat low-transverse section. She has requested intraoperative bilateral salpingectomy which will be carried out as well. The risks and complications have been discussed and the patient has understood and agreed to proceed.
[2024-05-11] MEDS ORDERED: OXYTOCIN 30 UNITS/500 ML NS 30 UNIT in SALINE 1 500ML.BAG IV SCH (10:45)
[2024-05-11] MEDS ORDERED: ONDANSETRON 4 MG/2 ML VIAL ONE (10:50)
[2024-05-11] MEDS ORDERED: KETOROLAC 15 MG/ML 1 ML VIAL ONE (10:50)
[2024-05-11] MEDS ORDERED: DEXAMETHASONE SOD PHOSPHATE 4 MG/ML 1 ML VIAL ONE (10:50)
[2024-05-11] MEDS ORDERED: NALBUPHINE (ANES) 10 MG/ML - 1 ML AMP ONE (10:50)
[2024-05-11] MEDS ORDERED: fentaNYL (PF) 50 MCG/ML 2 ML AMP ONE (10:50)
[2024-05-11] MEDS: CITRIC ACID-SODIUM CITRATE 15 ML CUP PO ONE (10:50)
[2024-05-11] MEDS ORDERED: MORPHINE SULFATE (PF) 0.3 MG/0.3 ML SYR ONE (10:50)
[2024-05-11] MEDS ORDERED: OXYTOCIN 30 UNITS/500 ML NS BAG IV ONE (10:50)
[2024-05-11] MEDS ORDERED: METOCLOPRAMIDE 5 MG/ML 2 ML VIAL IVP PRN (11:46)
[2024-05-11] MEDS ORDERED: ONDANSETRON 4 MG/2 ML VIAL IVP PRN (11:46)
[2024-05-11] MEDS ORDERED: SIMETHICONE 80 MG CHEWABLE PO PRN (11:46)
[2024-05-11] MEDS ORDERED: ZOLPIDEM 5 MG TAB PO PRN (11:46)
[2024-05-11] MEDS ORDERED: LANOLIN CREAM 1 GM TUBE TOPICAL PRN (11:46)
[2024-05-11] MEDS ORDERED: NALOXONE 0.4 MG/ML 1 ML VIAL IV PRN (11:46)
[2024-05-11] MEDS ORDERED: diphenhydrAMINE 25 MG CAP PO PRN (11:46)
[2024-05-11] MEDS ORDERED: diphenhydrAMINE 50 MG CAP PO PRN (11:46)
[2024-05-11] MEDS ORDERED: diphenhydrAMINE 50 MG/ML 1 ML VIAL IVP PRN ×2 (11:46)
--- NOTE | 2024-05-11 11:56 | P.OP ---
Date of Procedure: 05/11/24 Preoperative Diagnosis: #1. 37-0/7 weeks, labor #2. History of section, requesting repeat #3. -induced hypertension #4. Morbid obesity #5. Undesired fertility Postoperative Diagnosis: Same Procedure(s) Performed: #1. Repeat low-transverse section, vacuum-assisted delivery #2. Intraoperative bilateral salpingectomy Anesthesia: spinal Surgeon: Tyson rTan Rn Telephonic #1: Livia Menjivar Estimated Blood Loss (ml): 500 IV fluids (ml): 700 Urine output (ml): 150 Pathology: other (bilateral fallopian tubes) Condition: stable Disposition: floor Operative Findings: H&P for details leading to surgery. The patient was taken to the operating room where she underwent repeat low-transverse section in an uncomplicated fashion was delivered of a viable 6 pound 13 ounce baby girl delivered in the occiput anterior position. Vacuum assistance was required secondary to difficult angles secondary to obesity. Apgars were 8 at 1 minute and 9 at 5 minutes. The placenta was delivered manually, intact, and grossly normal with a grossly normal three-vessel cord. The uterus, tubes, and ovaries were entirely normal to inspection. The bilateral fallopian tubes were removed and sent together in a single specimen to pathology for diagnoses after reaffirming the patient's desire for salpingectomy. There was a significant amount of edema in the very deep subcutaneous fat layer prompting closure of the skin with chalo rather than a stitch. Description of Procedure: The patient was prepped and draped in usual fashion after spinal anesthesia was administered by the anesthesiologist. A pannus retraction device was utilized and a Pfannenstiel incision was made through her pre-existing scar and extended down into the abdominal cavity with the primary difficulty being the depth of subcutaneous fat layer. Once in the abdomen, a Yahir self-retaining retractor was placed in standard fashion. 2 cm incision was made the transverse plane of the lower uterine segment to enter the uterus at which time a significant amount of clear fluid was noted. The incision was extended both directions using the bandage scissors. The head was attempted to be delivered up and through the incision but was unable to do so secondary to the angles of and obesity of the abdomen. A mighty VAC vacuum was applied to the occiput of the head and the head easily elevated through the incision. The nose and mouth were thoroughly suctioned and the infant was delivered onto the field where the cord was doubly clamped, cut, and the infant passed resuscitative measures with weight and Apgars as noted above. The placenta was delivered manually and intact as noted above. The uterus was exteriorized and the anterior cavity the uterus was swept with a laparotomy sponge to remove any remaining placental or membranous fragments. The margins of the uterine incision were grasped with Bhatti clamps and the uterine incision was closed with a single running locking stitch of 0 chromic catgut from margin to margin. Hemostasis appeared to be excellent. The posterior cul-de-sac was suctioned with a guard. After reaffirming the patient's desire for bilateral salpingectomy, the LigaSure device was utilized to remove both fallopian tubes from the fimbriated end to the cornual insertion. Both tubes were included in a single specimen to be sent to pathology for diagnoses. There was no ongoing bleeding from any the surgical sites. The uterus was replaced within the abdominal cavity and the gutters swept of any remaining blood, fluid, or clot. The incision was reexamined and found to be hemostatic. The Yahir retractor was removed and the parietal peritoneum loosely reapproximated. The layer of muscles was examined and made hemostatic with the Bovie. The fascia was closed with 2 running stitches of 0 Vicryl proceeding from the lateral margins to the midpoint. The subcutaneous tissues were noted to be extraordinarily edematous and oozing serous fluid continuously. They were made hemostatic with the Bovie and then reapproximated with a running stitch of 3-0 plain catgut from margin to margin. The skin was reapproximated with regular surgical chalo. All sponge, instrument, and needle counts were correct. Estimated blood loss for the case was approximately 500 mL. There were no complications. The patient tolerated the procedure well and proceeded to the recovery room in stable condition. Both mother and are resting comfortably in recovery.
[2024-05-11 13:29] LABS: INR 0.8 (<1.2); Prothrombin Time 9.4 sec (10.0-12.5)
[2024-05-11 13:38] LABS: Partial Thromboplastin Time 20.8 sec (22.0-30.0)
[2024-05-11] MEDS: ceFAZolin 3 GM in SODIUM CHLORIDE 0.9% 100 ML IVPB ONE (17:46)
[2024-05-11] MEDS: ACETAMINOPHEN TAB 500 MG TAB PO SCH (17:51)
[2024-05-11] MEDS: KETOROLAC 15 MG/ML 1 ML VIAL IVP PRN (21:14)
[2024-05-11] MEDS: SENNOSIDES-DOCUSATE SODIUM 1 EACH TAB PO SCH (21:15)
[2024-05-12 06:57] LABS: Basophils % (A) 0 %; Eosinophils # (A) 0.1 k/uL (0-0.7); Eosinophils % (A) 1 %; HCT 35.7 % (34.0-46.0); HGB 11.4 gm/dL (11.4-16.0); Lymphocytes # (A) 1.4 k/uL (1.0-4.8); Lymphocytes % (A) 12 %; MCH 27.4 pg (25.0-35.0); MCV 85.5 fL (80.0-100.0); Mean Platelet Volume 11.1; Monocytes # (A) 0.5 k/uL (0-1.0); Monocytes % (A) 5 %; Neutrophils # (A) 9.2 k/uL (1.3-7.7); Neutrophils % (A) 81 %; Platelet Count 145 k/uL (150-450); RBC 4.17 m/uL (3.80-5.40); RDW 13.7 % (11.5-15.5); WBC 11.3 k/uL (3.8-10.6)
--- NOTE | 2024-05-12 09:18 | P.PN ---
Progress Note - Text Adequate analgesia. No anesthetic complication.
--- NOTE | 2024-05-12 09:26 | P.PNOBGPC ---
Subjective - Subjective Patient reports: Reports appetite normal, Reports voiding normally, Reports pain well controlled, Reports ambulating normally : doing well, nursing well Objective - Vital Signs Latest vital signs: Vital Signs Temp Pulse Resp BP Pulse Ox 05/12/24 08:00 98.0 F 80 16 138/84 99 05/12/24 00:31 97.9 F 54 L 18 141/79 05/11/24 16:00 98.4 F 55 L 15 133/78 98 05/11/24 14:15 98.0 F 49 L 16 147/79 93 L 05/11/24 13:46 55 L 16 149/75 93 L 05/11/24 13:31 49 L 16 152/77 93 L 05/11/24 13:16 50 L 16 144/75 93 L 05/11/24 13:01 54 L 16 144/70 93 L 05/11/24 12:32 48 L 16 144/87 97 05/11/24 12:17 51 L 16 132/79 93 L 05/11/24 12:02 66 16 135/75 98 05/11/24 11:47 97.1 F L 59 L 16 137/88 94 L Intake and Output 05/11/24 05/12/24 05/12/24 22:59 06:59 14:59 Intake Total 240 Output Total 200 600 300 Balance -200 -360 -300 Intake: Oral 240 Output: Urine 200 600 300 Uretheral (Thapa) 400 Other: # Voids 1 - Exam Extremities: Present: normal Abdomen: Present: normal appearance, soft. Absent: distention, tenderness Incision: Present: normal, dry, intact Uterus: Present: normal, firm (The uterine fundus is tonic and minimally tender below the umbilicus.) - Labs Labs: Abnormal Lab Results - Last 24 Hours (Table) 05/11/24 05/12/24 Range/Units 09:40 06:34 WBC 11.3 H (3.8-10.6) k/uL Plt Count 145 L (150-450) k/uL Neutrophils # 9.2 H (1.3-7.7) k/uL PT 9.4 L (10.0-12.5) sec APTT 20.8 L (22.0-30.0) sec Assessment and Plan (1) Active labor Current Visit: Yes Status: Acute Code(s): PXM8788 - SNOMED Code(s): 625530720 (2) Family planning Current Visit: Yes Status: Acute Code(s): Z30.09 - ENCOUNTER FOR OTH GENERAL CNSL AND ADVICE ON CONTRACEPTION SNOMED Code(s): 311756706 (3) induced hypertension Current Visit: Yes Status: Acute Code(s): O13.9 - GESTATIONAL HTN W/O SIGNIFICANT PROTEINURIA, UNSP TRIMESTER SNOMED Code(s): 82926958 (4) Previous section Current Visit: Yes Status: Acute Code(s): Z98.891 - HISTORY OF UTERINE SCAR FROM PREVIOUS SURGERY SNOMED Code(s): 632755551 (5) Term Current Visit: Yes Status: Acute Code(s): Z34.90 - ENCNTR FOR SUPRVSN OF NORMAL , UNSP, UNSP TRIMESTER SNOMED Code(s): 12895325 (6) Status post section Current Visit: Yes Status: Acute Code(s): Z98.891 - HISTORY OF UTERINE SCAR FROM PREVIOUS SURGERY SNOMED Code(s): 451070965 Plan: Continue routine and postoperative care. I have encouraged the patient to ambulate in the hallways routinely. I would anticipate discharge home tomorrow pending no complications or any problems with blood pressure.
[2024-05-12] MEDS: LACTATED RINGERS 1,000 ML IV SCH (12:14)
[2024-05-12] MEDS: IBUPROFEN 800 MG TAB PO SCH (13:47)
[2024-05-13 08:13] VITALS: BP 133/87; PULSE 57; RESP 16; TEMP 97.5
--- NOTE | 2024-05-13 10:22 | P.DS ---
Providers Date of admission: 05/11/24 09:57 Expected date of discharge: 05/13/24 Attending physician: Tyson Tran Primary care physician: Stated None - Discharge Diagnosis(es) (1) Active labor Current Visit: Yes Status: Acute (2) Family planning Current Visit: Yes Status: Acute (3) induced hypertension Current Visit: Yes Status: Acute (4) Previous section Current Visit: Yes Status: Acute (5) Term Current Visit: Yes Status: Acute (6) Status post section Current Visit: Yes Status: Acute Hospital Course: The patient is a 28-year-old 3 para 0-1-1-1 admitted at 37-0/7 weeks by good dating parameters. She is admitted with significantly elevated blood pressures and a negative laboratory workup for preeclampsia. She additionally is noted to be jewel regularly and is at 5 cm of dilation. She carries a history of a previous section done emergently at 35 weeks for cord prolapse and has requested a repeat with intraoperative bilateral salpingectomy. As a result of being in active labor at term, she was taken to the operating room where she underwent repeat low-transverse section in an uncomplicated fashion and was delivered of a viable 6 pound 13 ounce baby girl with Apgars of 8 at 1 minute and 9 at 5 minutes. Her and postoperative course was unremarkable with vital signs remaining stable and her temperature was afebrile throughout. She was deemed stable for discharge on and postoperative day #2 and was discharged home to follow-up in the office in 2 weeks time for an incision check in 6 weeks routinely. Discharge instructions included calling for any significantly increased bleeding or foul- smelling lochia, significantly increased fever abdominal pain, perineal complaints, breast complaints, incisional complaints, or anything else that concerned her. She was additionally instructed to have nothing in the vagina for at least 6 weeks time to include intercourse. She understood her instruct ions and agrees to follow-up as noted above. Discharge medications included continued vitamins as she has opted to breast-feed. She was otherwise to use [id number] analgesic pain medications as needed. She was provided a prescription for oxycodone 5 mg, 1-2 p.o. every 6 hours as needed pain, #20 dispensed with no refills. Maternal blood type is O+ and rubella status is immune. Discharge hemoglobin and hematocrit were 11.4 and 35.7 respectively. Procedures: #1. Repeat low-transverse section #2. Intraoperative bilateral salpingectomy Patient Condition at Discharge: Stable Plan - Discharge Summary New Discharge Prescriptions: No Action Vit No.180/Iron/Folic [ Plus Tablet] 1 tab PO DAILY MDD 1 Aspirin [[place] Aspirin EC] 81 mg PO DAILY Discharge Medication List Vit No.180/Iron/Folic [ Plus Tablet] 1 tab PO DAILY MDD 1 10/06/18 [History] Aspirin [[place] Aspirin EC] 81 mg PO DAILY 05/11/24 [History] Follow up Appointment(s)/Referral(s): Tyson Tran MD [STAFF PHYSICIAN] - 2 Weeks (05-25-24 @ 11:00 am 06-22-24 @ 11:00 am) Discharge Disposition: HOME SELF-CARE
== END 2024-05-13 13:20 | disposition home or self-care (01) | DRG 785 ==
LOC: FBPOP 08:47 → 4FBP 09:57
PROVIDERS: ADMIT Obstetrics & Gynecology; ATTEND Obstetrics & Gynecology
PROC: 0UB70ZZ Excision of Bilateral Fallopian Tubes, Open Approach (ICD-10-PCS; principal; 2024-05-11 11:11)
PROC: 10D00Z1 Extraction of Products of Conception, Low, Open Approach (ICD-10-PCS; principal; 2024-05-11 11:11)
DX: O34.211 Maternal care for low transverse scar from previous cesarean delivery (principal); E66.01 Morbid (severe) obesity due to excess calories; O99.214 Obesity complicating childbirth; O99.824 Streptococcus B carrier state complicating childbirth; O13.4 Gestational [pregnancy-induced] hypertension without significant proteinuria, complicating childbirth; Z37.0 Single live birth; Z3A.37 37 weeks gestation of pregnancy; Z30.2 Encounter for sterilization; Z87.891 Personal history of nicotine dependence; Z79.82 Long term (current) use of aspirin
CPT/HCPCS: 59025; 82565; 83615; 84450; 84460; 84520; 84550; 85025; 85384; 85610; 85730; 86850; 86900; 86901; 88302; 96361; 99215